=== PATIENT | male | born 1990 | race American Indian/Alaskan Native ===

== ENCOUNTER 2017-01-22 11:12 | Emergency (ER) | payer SELFPAY ==
[2017-01-22 12:07] VITALS: BP 131/89
[2017-01-22 12:33] LABS: Basophils % (Auto) 0.5 % (0.0-1.8); Eosinophils % (Auto) 1.6 % (0.0-4.3); Hematocrit 43.4 % (35.5-45.6); Hemoglobin 14.6 gm/dl (11.8-15.2); Mean Corpuscular HGB Conc 34 % (32-34); Mean Corpuscular Hemoglobin 30 pg (28-32); Mean Corpuscular Volume 88 fl (84-94); Platelet Count 170 K/mm3 (140-440); Red Blood Count 4.91 M/mm3 (3.65-5.03); Red Cell Distribution Width 13.4 % (13.2-15.2); White Blood Count 4.3 K/mm3 (4.5-11.0)
[2017-01-22 12:50] LABS: Anion Gap 19 mmol/L; Blood Urea Nitrogen 8 mg/dL (9-20); Calcium 9.5 mg/dL (8.4-10.2); Carbon Dioxide 22 mmol/L (22-30); Glucose 99 mg/dL (75-100); Potassium 3.9 mmol/L (3.6-5.0); Sodium 139 mmol/L (137-145)
[2017-01-22 13:11] LABS: Urine Drugs of Abuse Note Disclamer
--- NOTE | 2017-01-22 13:20 | Emergency Department Report ---
ED General Adult HPI - General Chief complaint: Psych Stated complaint: MENTAL EVAL Time Seen by Provider: 01/22/17 13:11 Source: patient, family, RN notes reviewed Mode of arrival: Ambulatory Limitations: No Limitations - History of Present Illness Initial comments: This is a 26-year-old male. He is previously unknown to me. He has no chronic medical conditions, and he is up-to-date with vaccinations. He is brought to the hospital by family for psychiatric evaluation. The patient endorses that he is hearing radio frequencies. He thinks that people are trying to hurt him. He is not homicidal or suicidal. He does not have access to guns or firearms. He denies overdose. Patient indicated "there are ultrasound way frequencies that are trying to bring him down." The patient's mother indicated that the patient has stated people were trying to hurt him. Patient denies headache, neck pain, chest pain, abdominal pain and shortness of breath. His symptoms have been constant, and he denies exacerbating or relieving factors. -: Gradual Consistency: constant Improves with: none Worsens with: none Associated Symptoms: denies: confusion, chest pain, cough, diaphoresis, fever/ chills, loss of appetite, malaise, nausea/vomiting, rash, shortness of breath, syncope, weakness - Related Data Home Medications Medication Instructions Recorded Confirmed Last Taken No Known Home Medications [No 01/22/17 01/22/17 Unknown Reported Home Medications] Allergies Allergy/AdvReac Type Severity Reaction Status Date / Time No Known Allergies Allergy Verified 01/22/17 12:07 ED Review of Systems ROS: Stated complaint: MENTAL EVAL Other details as noted in HPI Constitutional: denies: fever, malaise Eyes: denies: vision change ENT: denies: epistaxis Respiratory: denies: cough Cardiovascular: denies: chest pain Gastrointestinal: denies: abdominal pain Genitourinary: denies: urgency, dysuria Musculoskeletal: denies: back pain Skin: denies: rash Neurological: denies: weakness, numbness, paresthesias, confusion Psychiatric: anxiety, auditory hallucinations. denies: homicidal thoughts, suicidal thoughts ED Past Medical Hx - Past Medical History Previous Medical History?: No - Surgical History Past Surgical History?: No - Social History Smoking Status: Never Smoker Substance Use Type: None - Medications Home Medications: Home Medications Medication Instructions Recorded Confirmed Last Taken Type No Known Home Medications [No 01/22/17 01/22/17 Unknown History Reported Home Medications] ED Physical Exam - General Limitations: No Limitations General appearance: alert, in no apparent distress, other (patient is initially calm, but then becomes quite anxious and agitated. He does not have insight) - Head Head exam: Present: atraumatic, normocephalic - Eye Eye exam: Present: normal appearance, PERRL, EOMI. Absent: nystagmus Pupils: Present: other (visual acuity intact to finger counting, color perception, reading at a close distance) - ENT ENT exam: Present: normal exam, normal orophraynx, mucous membranes moist, normal external ear exam - Neck Neck exam: Present: normal inspection, full ROM. Absent: tenderness, meningismus - Respiratory Respiratory exam: Present: normal lung sounds bilaterally. Absent: respiratory distress, wheezes, rales, rhonchi, stridor, chest wall tenderness, accessory muscle use, decreased breath sounds, prolonged expiratory - Cardiovascular Cardiovascular Exam: Present: regular rate, normal rhythm, normal heart sounds. Absent: bradycardia, tachycardia, irregular rhythm, systolic murmur, diastolic murmur, rubs, gallop - GI/Abdominal GI/Abdominal exam: Present: soft, normal bowel sounds. Absent: distended, tenderness, guarding, rebound, rigid, pulsatile mass - Rectal Rectal exam: Present: deferred - Extremities Exam Extremities exam: Present: normal inspection, full ROM, normal capillary refill. Absent: tenderness, pedal edema, joint swelling, calf tenderness - Back Exam Back exam: Present: normal inspection, full ROM. Absent: tenderness, CVA tenderness (R), CVA tenderness (L), muscle spasm, paraspinal tenderness, vertebral tenderness - Neurological Exam Neurological exam: Present: alert, oriented X3, normal gait, other (Extraocular movements intact. Tongue midline. No facial droop. Facial sensation intact to light touch in the V1, V2, V3 distribution bilaterally. 5 and 5 strength in 4 extremities.. Sensation is intact to light touch in 4 extremities.). Absent : motor sensory deficit - Psychiatric Psychiatric exam: Present: anxious. Absent: homicidal ideation, suicidal ideation - Skin Skin exam: Present: warm, dry, intact, normal color. Absent: rash ED Course Vital Signs 01/22/17 12:02 Temperature 98.6 F Pulse Rate 67 Respiratory 20 Rate Blood Pressure 131/89 O2 Sat by Pulse 100 Oximetry ED Medical Decision Making - Lab Data Result diagrams: 01/22/17 12:12 01/22/17 12:12 Vital Signs 01/22/17 12:02 Temperature 98.6 F Pulse Rate 67 Respiratory 20 Rate Blood Pressure 131/89 O2 Sat by Pulse 100 Oximetry Lab Results 01/22/17 01/22/17 01/22/17 Range/Units 12:12 12:12 12:12 WBC 4.3 L (4.5-11.0) K/mm3 RBC 4.91 (3.65-5.03) M/mm3 Hgb 14.6 (11.8-15.2) gm/dl Hct 43.4 (35.5-45.6) % MCV 88 (84-94) fl MCH 30 (28-32) pg MCHC 34 (32-34) % RDW 13.4 (13.2-15.2) % Plt Count 170 (140-440) K/mm3 Lymph % (Auto) 39.9 H (13.4-35.0) % [place] % (Auto) 9.8 H (0.0-7.3) % Eos % (Auto) 1.6 (0.0-4.3) % Baso % (Auto) 0.5 (0.0-1.8) % Lymph # 1.7 (1.2-5.4) K/mm3 [place] # 0.4 (0.0-0.8) K/mm3 Eos # 0.1 (0.0-0.4) K/mm3 Baso # 0.0 (0.0-0.1) K/mm3 Seg Neutrophils % 48.2 (40.0-70.0) % Seg Neutrophils # 2.1 (1.8-7.7) K/mm3 Sodium 139 (137-145) mmol/L Potassium 3.9 (3.6-5.0) mmol/L Chloride 102.0 (98-107) mmol/L Carbon Dioxide 22 (22-30) mmol/L Anion Gap 19 mmol/L BUN 8 L (9-20) mg/dL Creatinine 0.8 (0.8-1.5) mg/dL Estimated GFR > 60 ml/min BUN/Creatinine Ratio 10.00 % Glucose 99 (75-100) mg/dL Calcium 9.5 (8.4-10.2) mg/dL Total Creatine Kinase (55-170) units/L TSH (0.270-4.200) mlU/mL Urine Color (Yellow) Urine Turbidity (Clear) Urine pH (5.0-7.0) Ur Specific [place] (1.003-1.030) Urine Protein (Negative) mg/dL Urine Glucose (UA) (Negative) mg/dL Urine Ketones (Negative) mg/dL Urine Blood (Negative) Urine Nitrite (Negative) Urine Bilirubin (Negative) Urine Urobilinogen (<2.0) mg/dL Ur Leukocyte Esterase (Negative) Urine WBC (Auto) (0.0-6.0) /HPF Urine RBC (Auto) (0.0-6.0) /HPF U Epithel Cells (Auto) (0-13.0) /HPF Hyaline Casts /LPF Urine Mucus /HPF Salicylates (2.8-20.0) mg/dL Urine Opiates Screen Urine Methadone Screen Ur Barbiturates Screen Ur Phencyclidine Scrn Ur Amphetamines Screen U Benzodiazepines Scrn Urine Cocaine Screen U Marijuana (THC) Screen Drugs of Abuse Note Plasma/Serum Alcohol < 0.01 (0-0.07) gm% 01/22/17 01/22/17 01/22/17 Range/Units 12:12 12:12 12:12 WBC (4.5-11.0) K/mm3 RBC (3.65-5.03) M/mm3 Hgb (11.8-15.2) gm/dl Hct (35.5-45.6) % MCV (84-94) fl MCH (28-32) pg MCHC (32-34) % RDW (13.2-15.2) % Plt Count (140-440) K/mm3 Lymph % (Auto) (13.4-35.0) % [place] % (Auto) (0.0-7.3) % Eos % (Auto) (0.0-4.3) % Baso % (Auto) (0.0-1.8) % Lymph # (1.2-5.4) K/mm3 [place] # (0.0-0.8) K/mm3 Eos # (0.0-0.4) K/mm3 Baso # (0.0-0.1) K/mm3 Seg Neutrophils % (40.0-70.0) % Seg Neutrophils # (1.8-7.7) K/mm3 Sodium (137-145) mmol/L Potassium (3.6-5.0) mmol/L Chloride (98-107) mmol/L Carbon Dioxide (22-30) mmol/L Anion Gap mmol/L BUN (9-20) mg/dL Creatinine (0.8-1.5) mg/dL Estimated GFR ml/min BUN/Creatinine Ratio % Glucose (75-100) mg/dL Calcium (8.4-10.2) mg/dL Total Creatine Kinase 343 H (55-170) units/L TSH 1.770 (0.270-4.200) mlU/mL Urine Color (Yellow) Urine Turbidity (Clear) Urine pH (5.0-7.0) Ur Specific [place] (1.003-1.030) Urine Protein (Negative) mg/dL Urine Glucose (UA) (Negative) mg/dL Urine Ketones (Negative) mg/dL Urine Blood (Negative) Urine Nitrite (Negative) Urine Bilirubin (Negative) Urine Urobilinogen (<2.0) mg/dL Ur Leukocyte Esterase (Negative) Urine WBC (Auto) (0.0-6.0) /HPF Urine RBC (Auto) (0.0-6.0) /HPF U Epithel Cells (Auto) (0-13.0) /HPF Hyaline Casts /LPF Urine Mucus /HPF Salicylates < 0.3 L (2.8-20.0) mg/dL Urine Opiates Screen Urine Methadone Screen Ur Barbiturates Screen Ur Phencyclidine Scrn Ur Amphetamines Screen U Benzodiazepines Scrn Urine Cocaine Screen U Marijuana (THC) Screen Drugs of Abuse Note Plasma/Serum Alcohol (0-0.07) gm% 01/22/17 01/22/17 Range/Units 12:38 12:38 WBC (4.5-11.0) K/mm3 RBC (3.65-5.03) M/mm3 Hgb (11.8-15.2) gm/dl Hct (35.5-45.6) % MCV (84-94) fl MCH (28-32) pg MCHC (32-34) % RDW (13.2-15.2) % Plt Count (140-440) K/mm3 Lymph % (Auto) (13.4-35.0) % [place] % (Auto) (0.0-7.3) % Eos % (Auto) (0.0-4.3) % Baso % (Auto) (0.0-1.8) % Lymph # (1.2-5.4) K/mm3 [place] # (0.0-0.8) K/mm3 Eos # (0.0-0.4) K/mm3 Baso # (0.0-0.1) K/mm3 Seg Neutrophils % (40.0-70.0) % Seg Neutrophils # (1.8-7.7) K/mm3 Sodium (137-145) mmol/L Potassium (3.6-5.0) mmol/L Chloride (98-107) mmol/L Carbon Dioxide (22-30) mmol/L Anion Gap mmol/L BUN (9-20) mg/dL Creatinine (0.8-1.5) mg/dL Estimated GFR ml/min BUN/Creatinine Ratio % Glucose (75-100) mg/dL Calcium (8.4-10.2) mg/dL Total Creatine Kinase (55-170) units/L TSH (0.270-4.200) mlU/mL Urine Color Yellow (Yellow) Urine Turbidity Clear (Clear) Urine pH 6.0 (5.0-7.0) Ur Specific [place] 1.026 (1.003-1.030) Urine Protein <15 mg/dl (Negative) mg/dL Urine Glucose (UA) Neg (Negative) mg/dL Urine Ketones Neg (Negative) mg/dL Urine Blood Neg (Negative) Urine Nitrite Neg (Negative) Urine Bilirubin Neg (Negative) Urine Urobilinogen < 2.0 (<2.0) mg/dL Ur Leukocyte Esterase Neg (Negative) Urine WBC (Auto) 1.0 (0.0-6.0) /HPF Urine RBC (Auto) 4.0 (0.0-6.0) /HPF U Epithel Cells (Auto) < 1.0 (0-13.0) /HPF Hyaline Casts 1 /LPF Urine Mucus 2+ /HPF Salicylates (2.8-20.0) mg/dL Urine Opiates Screen Presumptive negative Urine Methadone Screen Presumptive negative Ur Barbiturates Screen Presumptive negative Ur Phencyclidine Scrn Presumptive negative Ur Amphetamines Screen Presumptive negative U Benzodiazepines Scrn Presumptive negative Urine Cocaine Screen Presumptive negative U Marijuana (THC) Screen Presumptive negative Drugs of Abuse Note Disclamer Plasma/Serum Alcohol (0-0.07) gm% - Radiology Data Radiology results: report reviewed, image reviewed Noncontrast CT scan of the brain is negative for acute disease - Medical Decision Making Differential diagnosis: Schizophrenia, bipolar, mood disorder with psychotic features, thyroid disease, medical clearance for psychiatric placement Assessment and plan: 26-year-old male who presents with bizarre thought process , persecutory delusions, audio hallucinations. He is not homicidal or suicidal , but he becomes quite anxious and agitated, and he did respond to some verbal de escalation techniques and show of force. He has a GCS of 15, with an NIH score of 0. His physical exam is unremarkable, his laboratory studies were unremarkable, a noncontrast CT scan of the brain is negative. Patient did require Haldol and Ativan to allow him to participate in his medical care. At this point in time, there is no immediate medical constipation to psychiatric admission/evaluation and consultation. The crisis team was informed. Critical care attestation.: If time is entered above; I have spent that time in minutes in the direct care of this critically ill patient, excluding procedure time. ED Disposition Clinical Impression: Medical clearance for psychiatric admission Disposition: [id number] PSY HOSP/PSY UNIT Is pt being admited?: No Does the pt Need Aspirin: No Condition: Stable
[2017-01-22 13:23] LABS: Bilirubin,Urine NEG (Negative); Blood,Urine NEG (Negative); Ketones,Urine NEG (Negative); Leukocyte Esterase,Urine NEG (Negative); Mucus,Urine 2+ /HPF; Nitrite,Urine NEG (Negative); Protein,Urine <15 mg/dL mg/dL (Negative); Urobilinogen,Urine < 2.0 mg/dL (<2.0)
[2017-01-22] MEDS ORDERED: HALDOL IM ONE (13:51)
[2017-01-22] MEDS ORDERED: ATIVAN IM PRN (13:51)
--- NOTE | 2017-01-22 14:42 | Cat Scan Report ---
CT scan of head without contrast: History: Audio hallucinations. Findings: Ventricles are normal in size and midline in location. No evidence of acute ischemia, hemorrhage or mass. No extra-axial fluid collection. Normal brainstem and cerebellum. There is 1.1 cm retention cyst right maxillary sinus. Normal mastoid air cells. Impression: No acute intracranial abnormality. Retention cyst or polyp right maxillary sinus.
--- NOTE | 2017-01-22 15:05 | Consultation ---
History of Present Illness - Reason for Consult Consult date: 01/22/17 Medications and Allergies Allergies Allergy/AdvReac Type Severity Reaction Status Date / Time No Known Allergies Allergy Verified 01/22/17 12:07 Home Medications Medication Instructions Recorded Confirmed Last Taken Type No Known Home Medications [No 01/22/17 01/22/17 Unknown History Reported Home Medications] Active Meds: Active Medications Lorazepam (Ativan) 2 mg IM Q4HR PRN PRN Reason: Agitation Last Admin: 01/22/17 14:03 Dose: 2 mg Mental Status Exam - Vital signs Last Vital Signs Temp 98.6 F 01/22/17 12:02 Pulse 67 01/22/17 12:02 Resp 20 01/22/17 12:02 BP 131/89 01/22/17 12:02 Pulse Ox 100 01/22/17 12:02 Results Result Diagrams: 01/22/17 12:12 01/22/17 12:12 Abnormal lab results 01/22/17 01/22/17 01/22/17 Range/Units 12:12 12:12 12:12 WBC 4.3 L (4.5-11.0) K/mm3 Lymph % (Auto) 39.9 H (13.4-35.0) % [place] % (Auto) 9.8 H (0.0-7.3) % BUN 8 L (9-20) mg/dL Total Creatine Kinase 343 H (55-170) units/L Salicylates (2.8-20.0) mg/dL 01/22/17 Range/Units 12:12 WBC (4.5-11.0) K/mm3 Lymph % (Auto) (13.4-35.0) % [place] % (Auto) (0.0-7.3) % BUN (9-20) mg/dL Total Creatine Kinase (55-170) units/L Salicylates < 0.3 L (2.8-20.0) mg/dL All other labs normal.
--- NOTE | 2017-01-22 17:11 | Consultation ---
History of Present Illness - Reason for Consult Consult date: 01/22/17 Reason for consult: paranoia and auditory hallucinations Medications and Allergies Allergies Allergy/AdvReac Type Severity Reaction Status Date / Time No Known Allergies Allergy Verified 01/22/17 12:07 Home Medications Medication Instructions Recorded Confirmed Last Taken Type No Known Home Medications [No 01/22/17 01/22/17 Unknown History Reported Home Medications] Active Meds: Active Medications Lorazepam (Ativan) 2 mg IM Q4HR PRN PRN Reason: Agitation Last Admin: 01/22/17 14:03 Dose: 2 mg Mental Status Exam - Vital signs Last Vital Signs Temp 98.6 F 01/22/17 12:02 Pulse 67 01/22/17 12:02 Resp 20 01/22/17 12:02 BP 131/89 01/22/17 12:02 Pulse Ox 100 01/22/17 12:02 Results Result Diagrams: 01/22/17 12:12 01/22/17 12:12 Abnormal lab results 01/22/17 01/22/17 01/22/17 Range/Units 12:12 12:12 12:12 WBC 4.3 L (4.5-11.0) K/mm3 Lymph % (Auto) 39.9 H (13.4-35.0) % Conway % (Auto) 9.8 H (0.0-7.3) % BUN 8 L (9-20) mg/dL Total Creatine Kinase 343 H (55-170) units/L Salicylates (2.8-20.0) mg/dL 01/22/17 Range/Units 12:12 WBC (4.5-11.0) K/mm3 Lymph % (Auto) (13.4-35.0) % Conway % (Auto) (0.0-7.3) % BUN (9-20) mg/dL Total Creatine Kinase (55-170) units/L Salicylates < 0.3 L (2.8-20.0) mg/dL All other labs normal. Assessment and Plan Assessment and plan: CHIEF COMPLAINT IN PATIENTS WORDS: HISTORY OF PRESENT ILLNESS REQUIRING ADMISSION TO INPATIENT LEVEL OF CARE: (Describe the onset of Illness, Intensity of Symptoms, and Circumstances Leading to Admission) This is a 26 year-old domiciled male with no formal past psychiatric history now presenting to the ER due to concerns that patient is having auditory hallucinations. Furthermore, review of medical records suggest the patient is having some persecutory delusions as well. On examination, patient is accompanied by his mother who provided collateral information during the interview. During my discussion with the patient today, the patient was fairly cooperative and verbally engaged. Patient did mention that he's been struggling with onset of sleep and his been having irregular sleep patterns. Irregular sleep patterns date back to the time when he was in the [place] several weeks ago. [place] the [place] and is currently living with his mother. 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 These thoughts led him to be preoccupied and worry during the evening time such that they would affect and disrupt his sleep. While he has been back here in the [place], his sleep disruption continues. At the current time, the mother notes that he continues to worry about his future because he has terminated employment with the institution where he was employed. Consequently, patient is worried what he's connected with his life. Furthermore, patient has been having periodic symptoms of anxiety which has also manifested as some panic-like symptoms. Most notably, patient's been having a subjective sensation in his heart is pounding. This is not associated with other somatic symptoms such as GI distress or musculoskeletal problems. The aforementioned problems are not associated with suicidal or homicidal thoughts. Furthermore, patient is not experiencing delusions that are impairing his ability to function in his current environment. His ADLs are appropriate and his mother notes that patient continues to relate appropriately with her and other members of the family. The dominant dysfunction that the patient's experiencing is his inability to sleep, which is likely exacerbating his current presentation. PSYCHIATRIC REVIEW OF SYSTEMS: Substance: UDS Negative Depression: Currently denies a sense of hopelessness, not socially isolated, denies changes to his appetite or weight Brie: no labile moods, not hyperverbal, no flight of ideas Psychosis: Appears to have overvalued ideas about other people, especially in his work environment out to get him. He is able to describe that he has the sensation or feeling and associates it with an appropriate level of concern about his future. Some auditory phenomenon which are not described as voices but more like noise or music that he is hearing. Patient denies that this is happening; however, mother notes that he has been experiencing these noises which are not experienced by the mother when she is in the same environment. Anxiety/ OCD/ PTSD: She is currently having symptoms consistent with a panic attack most notably an increased heart rate periodically when he worries Suicidality: denies SI Other Self-Injurious Behavior: none currently, no SIB noted recently Violent/ Aggressive Behavior: none noted CURRENT MEDICATIONS: ( Psychiatric and Non-psychiatric ) None ALLERGIES: NKDA PAST PSYCHIATRIC HISTORY: ( Prior Treatment, Precipitating Factors, Diagnosis, and Course of Treatment ) Inpatient: none reported Outpatient: none reported Prior Suicide Attempts: denies Prior Self-Injurious Behaviors: denies PAST PSYCHIATRIC MEDICATION TRIALS: denies MEDICAL HISTORY: (Chronic and Acute Illnesses, Current Medical Treatment, Recent Hospitalizations) Denies Detoxification / Withdrawal: none noted MENTAL STATUS EXAM: General Appearance: Dressed in hospital gown, no acute distress Sensorium/Consciousness: alert and responding to external stimuli Eye Contact: Fair Attitude / Behavior: cooperative, but guarded, somewhat evasive Psychomotor & Musculoskeletal Activity: WNL Mood: "I'm okay" Affect: Somewhat labile Speech / Language: normal Thought Processes: organized, some perseveration noted Thought Content: no SI, no HI, some overvalued ideas noted, unclear if patient is having persecutory delusions Perception: no AVH Orientation: person, place, time, situation Judgment What would you do if you smelled smoke in a crowded movie theater?: Some impairments noted with respect to his inability to abstain from worrying about work-related matters in spite terminating his employment Insight: Some limitation noted as the patient does not believe that he is experiencing a significant amount of distress related to his persistent worrying and associated sleep difficulty Intelligence Vocabulary, general fund of knowledge, educational level: Average Capacity of ADLs: Independent STRENGTHS: PSYCHOSOCIAL AND ENVIRONMENTAL STRESSORS: Work-related stress ADMITTING DIAGNOSES Psychiatric: Generalized anxiety disorder Evidence for the following: r/o Major depressive disorder with psychotic features Medical: n/a INITIAL PLAN OF CARE AND TREATMENT GOALS: I. This screening and assessment is based on information collected from the following sources: II. SUICIDE RISK SCREENING (within last 30 days): A.) Suicidal thoughts/behaviors: None reported SUICIDE RISK ASSESSMENT III. FACTORS THAT INCREASE RISK: A.) Demographic and Substance Use Factors: Recent substance abuse and intoxication B.) Current/Recent Factors (within past 3 months): Psychosocial/Environmental Factors: Work-related stress Physical Illness: None Cognitive/Psychological Factors: None C.) Historical Factors: None D.) Diagnostic/Symptom/Treatment Factors: Symptoms of anxiety with overvalued ideas and some cognitive inflexibility leading to perseverative thinking E.) Acute Risk Factor Severity (DESC; MILD/MOD/SEVERE) Other factors for this individual that increase risk: IV. FACTORS THAT DECREASE RISK: Resilience/Protective Factors: Intermittent psychosocial supports Other factors for this individual that decrease risk: Patient reports he is future oriented and currently denying a desire to harm self. Patient has the support of his mother who is currently at the bedside. V. Clinician's Formulation of Risk and Determination of level of Care: Estimation of Imminent Risk: Low due to the above explanation Determination of Level of Care based on Suicide Risk: Outpatient follow-up and the [facility] Narrative description of clinical reasoning. (This must be completed on all patients): This is a 26-year-old male who is having both chronic and acute stressors which have brought him to the ER. Just prior to the ER presentation patient was intoxicated and verbalized desire to harm himself. Since being hospitalized, the patient has consistently denied the desire to harm himself. The patient does report some disturbance related to him being overly preoccupied with work- related matters. Furthermore, patient is concerned that there are some intentional effort by his previous employers to harm him in some capacity. His ongoing worry has led to some sleep disruption and likely worsening of current symptom manifestation. Nevertheless, patient is able to appropriately attend to ADLs. Additionally, patient is not at acute risk of harm self or others, which would mandate an involuntary psychiatric hold. Therefore, patient does not meet criteria for involuntary treatment. Patient does need some form of care which she can obtain on a voluntary basis. This has been explained to the parents as well as the patient that it is different and recommendations the patient engage in ongoing assessment to further understand the nature of his illness presentation. This, and my opinion, can be done as an outpatient in the program such as a partial program or at a [facility]. At the current time, patient is still able to reason with his mother and engage in activities of daily living, in spite of the disruption that has been associated with his sleep disturbance as well as overvalued ideas which were persecutory in nature and associated audio phenomenon as described above. . Plan and Interventions based on Suicide Risk: This patient will likely be stepped down to an outpatient mental health center in the community upon discharge and follow-up within 7 days of his discharge from the hospital. I've advised the family that if the want to engage in inpatient level of care, they can go to [place] or [facility] or [facility] and voluntarily admitted them because at this current time the patient does not meet criteria for involuntary hold and furthermore the patient does not want to engage currently in treatment at the inpatient level of care. I have advised the patient and the mother of their right to engage in treatment as well as the right to refuse treatment. At the current time the patient has capacity to understand the situation that he is in and has chosen to not engage at the inpatient level of care. He has noted that he will engage in outpatient community treatment programs which we' ll further assess his presentation and provide a formal treatment plan. VII. Discharge/After Hours Support Plan: If the patient's symptoms worsen, the patient can return back to the ER, call 911 or crisis line if symptoms of depression, anxiety, suicidality return.
== END 2017-01-22 18:46 ==
LOC: ED 11:12
DX: F41.9 Anxiety disorder, unspecified (principal)
CPT/HCPCS: 36415; 70450; 80048; 80307; 81001; 82550; 84443; 85025; 96372; 99284; G0480; J1630; J2060; 80320